=== PATIENT | female | born 1980 | race Caucasian/White ===

== ENCOUNTER 2018-05-06 01:15 | Inpatient (IN) | payer OTHER ==
[2018-05-06] MEDS ORDERED: NACL 0.9% 3 ML SYG IV (04:00)
[2018-05-06 05:32] LABS: ADD MAN DIFF? NO
[2018-05-06 05:36] LABS: BASOPHILS % 0.6 % (0.0-2.0); EOSINOPHILS # 0.2 10^3/ul (0.0-0.5); EOSINOPHILS % 4.2 % (0.0-7.0); HEMATOCRIT 32.5 % (37.0-47.0); HEMOGLOBIN 11.5 g/dl (12.0-16.0); LYMPHOCYTES # 1.2 10^3/ul (0.8-2.9); LYMPHOCYTES % 24.6 % (15.0-51.0); MEAN CORPUSCULAR HEMOGLOBIN 30.2 pg (29.0-33.0); MEAN CORPUSCULAR HGB CONC 35.4 g/dl (32.0-37.0); MEAN CORPUSCULAR VOLUME 85.3 fl (82.0-101.0); MEAN PLATELET VOLUME 8.8 fl (7.4-10.4); MONOCYTE # 0.5 10^3/ul (0.3-0.9); MONOCYTES % 10.6 % (0.0-11.0); NEUTROPHIL # 2.9 10^3/ul (1.6-7.5); NEUTROPHILS % 59.6 % (39.0-77.0); PLATELET COUNT 305 10^3/UL (140-415); RED BLOOD COUNT 3.81 10^6/ul (4.20-5.40); RED CELL DISTRIBUTION WIDTH 13.2 % (11.5-14.5)
[2018-05-06 05:36] LABS: WHITE BLOOD COUNT 4.8 10^3/ul (4.8-10.8)
[2018-05-06 06:03] LABS: ALANINE AMINOTRANSFERASE 18 IU/L (13-69); ALKALINE PHOSPHATASE 52 IU/L (42-121); ANION GAP 11 (5-13); ASPARTATE AMINO TRANSFERASE 19 IU/L (15-46); BILIRUBIN,INDIRECT 0.5 mg/dl (0-1.1); BILIRUBIN,TOTAL 0.5 mg/dl (0.2-1.3); BLOOD UREA NITROGEN 12 mg/dl (7-20); CALCIUM 8.5 mg/dl (8.4-10.2); CARBON DIOXIDE 22 mmol/L (21-31); CHLORIDE 109 mmol/L (97-110); CREATININE 0.82 mg/dl (0.44-1.00); Estimated GFR > 60 mL/min (>60); GLUCOSE 91 mg/dl (70-220); MAGNESIUM 2.5 mg/dl (1.7-2.5); PHOSPHORUS 3.1 mg/dl (2.5-4.9); SODIUM 142 mmol/L (135-144)
[2018-05-06 06:07] LABS: TROPONIN-I < 0.012 ng/ml (0.000-0.120)
[2018-05-06 06:12] LABS: FREE THYROXINE INDEX (Calc) 2.89 ug/ml (0.65-3.89); T3 UPTAKE 32.1 % (23.5-40.5)
[2018-05-06 06:25] LABS: POTASSIUM 2.9 mmol/L (3.5-5.1)
[2018-05-06] MEDS: POTASSIUM CHLORIDE (SR) 20 MEQ TAB PO ×2 (06:39→18:16)
[2018-05-06] MEDS: POTASSIUM CHLORIDE 100 ML IVPB ×2 (10:02→14:18)
[2018-05-06] MEDS: NITROFURANTOIN (SR) 100 MG CAP PO ×2 (10:05→21:17)
[2018-05-06 14:16] LABS: ANION GAP 10 (5-13); BLOOD UREA NITROGEN 10 mg/dl (7-20); CALCIUM 8.9 mg/dl (8.4-10.2); CARBON DIOXIDE 23 mmol/L (21-31); CHLORIDE 106 mmol/L (97-110); Estimated GFR > 60 mL/min (>60); GLUCOSE 100 mg/dl (70-220); POTASSIUM 3.3 mmol/L (3.5-5.1); SODIUM 139 mmol/L (135-144)
[2018-05-06] MEDS: IOHEXOL 14.3 MG(I)/ML (ADULT) BTL PO (18:00)
[2018-05-06] MEDS: POLYETHYLENE GLYCOL 3350 119 GM POWDER PO (21:16)
[2018-05-06] MEDS: HYDROCORTISONE 0.5% 28.35 GM OINT TOP (21:16)
[2018-05-07 05:56] LABS: POTASSIUM 3.2 mmol/L (3.5-5.1)
[2018-05-07] MEDS: POTASSIUM CHLORIDE 50 ML IVPB (08:00)
[2018-05-07] MEDS: HYDROCORTISONE 0.5% 28.35 GM OINT TOP ×2 (09:33→21:16)
[2018-05-07] MEDS: POTASSIUM CHLORIDE 100 ML IVPB (09:33)
[2018-05-07] MEDS ORDERED: INFLUENZA VIRUS VACCINE 0.5 ML (DISPENSING) IM* (10:00)
[2018-05-07] MEDS: ONDANSETRON 4 MG INJ IV (10:45)
[2018-05-07] MEDS: PROPOFOL 20 ML (11:42)
[2018-05-07] MEDS: FENTAnyl 50 MCG/ML VIAL (11:47)
[2018-05-07] MEDS: NITROFURANTOIN (SR) 100 MG CAP PO ×2 (13:48→21:16)
[2018-05-07] MEDS: POTASSIUM CHLORIDE (SR) 20 MEQ TAB PO (13:49)
[2018-05-07] MEDS: IOHEXOL 300MG/ML 150 ML BTL (20:21)
[2018-05-07] MEDS: SOD CHLORIDE 0.9% 100 ML (20:21)
[2018-05-08 06:54] LABS: ANION GAP 13 (5-13); BLOOD UREA NITROGEN 13 mg/dl (7-20); CALCIUM 9.4 mg/dl (8.4-10.2); CARBON DIOXIDE 16 mmol/L (21-31); CHLORIDE 110 mmol/L (97-110); CREATININE 0.83 mg/dl (0.44-1.00); Estimated GFR > 60 mL/min (>60); GLUCOSE 92 mg/dl (70-220); SODIUM 139 mmol/L (135-144)
[2018-05-08] MEDS: HYDROCORTISONE 0.5% 28.35 GM OINT TOP (09:00)
[2018-05-08] MEDS: POTASSIUM CHLORIDE (SR) 20 MEQ TAB PO ×2 (09:32→14:42)
== END 2018-05-08 19:01 | disposition home or self-care (01) | DRG 641 ==
LOC: 6WM 01:15
PROC: 0DB68ZX Excision of Stomach, Via Natural or Artificial Opening Endoscopic, Diagnostic (ICD-10-PCS; principal; 2018-05-07 11:28)
PROC: 0DBE8ZX Excision of Large Intestine, Via Natural or Artificial Opening Endoscopic, Diagnostic (ICD-10-PCS; 2018-05-07 11:28)
DX: E87.6 Hypokalemia (principal); N39.0 Urinary tract infection, site not specified; R19.7 Diarrhea, unspecified; R07.9 Chest pain, unspecified; K20.9 Esophagitis, unspecified; K29.70 Gastritis, unspecified, without bleeding; R25.2 Cramp and spasm
CPT/HCPCS: 74178; 80048; 80053; 83497; 83735; 84100; 84132; 84436; 84479; 84484; 84703; 85025; 86674; 87045; 87075; 87086; 88305; 88312; 90686; 93005